=== PATIENT | female | born 1980 | race Caucasian/White ===

== ENCOUNTER → 2017-06-12 | Outpatient (CLI) | payer BC, OTHER ==
[~2017-06-12] MED LIST: ALBU4; ALBU90I INH; ALBU90OI61; AMIT10; BACL10 PO; Benadryl 50 mg50 MG PO; CEPH500 PO; CITA20 PO; CRUTCH4 USE; Crutch1 EACH MISC; DIAZ5 PO; ERGO400 PO; FENO160 PO; FISH1000 PO; FLUSAL115 PO; HYDACE5 PO; LORA1 PO; METPRE4DP PO; NAPR550 PO; Naprosyn500 MG PO; Norco 5-325 Ta1 EACH PO; PHENA200 PO; PRED20 PO; QVAR7.3 G1 IH; RXHYDACE PO; RXLORA1 PO; SERT100 PO; SERT50 PO; SULTRIDS PO; TRAZ100 PO; Ultram50 MG PO; VIT D PO; Veetids 500500 MG PO; Verotin-Gr Cap1 EACH
== END | disposition home or self-care (01) ==
LOC: LAB 15:33 → LAB SHORT 15:33
DX: O09.529 Supervision of elderly multigravida, unspecified trimester (principal)
CPT/HCPCS: 87081; 87653

== ENCOUNTER 2017-06-23 22:25 | Inpatient (IN) | payer BC, OTHER ==
[~2017-06-23] VITALS: Ht 162.6 cm; Wt 89.0 kg
[2017-06-24] MEDS ORDERED: ALBU90OI INH (00:10)
[2017-06-24 00:44] LABS: BASOPHILS ABSOLUTE AUTO 0.03 K/mm3 (0.00-0.23); BASOPHILS PERCENT AUTO 0 % (0-2); EOSINOPHILS ABSOLUTE AUTO 0.07 K/mm3 (0.00-0.68); EOSINOPHILS PERCENT AUTO 1 % (0-6); Hematocrit 34.2 % (33.0-51.0); Hemoglobin 11.4 g/dL (11.5-16.0); IMMATURE GRAN ABSOLUTE AUTO 0.04 K/mm3 (0.00-0.10); IMMATURE GRAN PERCENT AUTO 0 % (0-1); LYMPHOCYTES ABSOLUTE AUTO 3.39 K/mm3 (0.84-5.20); LYMPHOCYTES PERCENT AUTO 25 % (21-46); MONOCYTES ABSOLUTE AUTO 0.97 K/mm3 (0.16-1.47); MONOCYTES PERCENT AUTO 7 % (4-13); Mean Corpuscular HGB 28.8 pg (26.0-34.0); Mean Corpuscular HGB Conc 33.3 g/dL (31.5-36.5); Mean Corpuscular Volume 86 fL (80-100); Mean Platelet Volume 10.8 fL (9.1-12.4); NEUTROPHILS ABSOLUTE AUTO 8.94 K/mm3 (1.96-9.15); NEUTROPHILS PERCENT AUTO 67 % (41-73); Platelet Count 262 K/mm3 (150-400); RDW Coefficient Variation 13.9 % (11.7-14.2); RDW Standard Deviation 43.3 fL (35.1-46.3); Red Blood Cell Count 3.96 M/mm3 (3.80-5.20); White Blood Cell Count 13.44 K/mm3 (4.00-11.30)
== END 2017-06-24 06:43 | disposition home or self-care (01) | DRG 782 ==
LOC: OBS 22:25 → BC 22:26 → OBS 23:52 → BC 23:54 → OBS 23:54 → BC 23:55
PROVIDERS: Obstetrics & Gynecology
DX: O62.2 Other uterine inertia (principal); O99.330 Smoking (tobacco) complicating pregnancy, unspecified trimester
CPT/HCPCS: 36415; 59025; 81003; 85025; 99213; J2590; J3010; J7120

== ENCOUNTER 2017-07-05 11:30 | Inpatient (IN) | payer BC, OTHER ==
[~2017-07-05] VITALS: Ht 162.6 cm; Wt 88.5 kg
[~2017-07-05 11:30] MED LIST changes: +ALBU90OI INH
[2017-07-05 12:33] LABS: BASOPHILS ABSOLUTE AUTO 0.03 K/mm3 (0.00-0.23); BASOPHILS PERCENT AUTO 0 % (0-2); EOSINOPHILS ABSOLUTE AUTO 0.05 K/mm3 (0.00-0.68); EOSINOPHILS PERCENT AUTO 0 % (0-6); Hematocrit 36.7 % (33.0-51.0); Hemoglobin 12.2 g/dL (11.5-16.0); IMMATURE GRAN ABSOLUTE AUTO 0.05 K/mm3 (0.00-0.10); IMMATURE GRAN PERCENT AUTO 0 % (0-1); LYMPHOCYTES ABSOLUTE AUTO 2.27 K/mm3 (0.84-5.20); LYMPHOCYTES PERCENT AUTO 15 % (21-46); MONOCYTES PERCENT AUTO 6 % (4-13); Mean Corpuscular HGB 28.6 pg (26.0-34.0); Mean Corpuscular HGB Conc 33.2 g/dL (31.5-36.5); Mean Corpuscular Volume 86 fL (80-100); Mean Platelet Volume 11.6 fL (9.1-12.4); NEUTROPHILS ABSOLUTE AUTO 11.75 K/mm3 (1.96-9.15); NEUTROPHILS PERCENT AUTO 78 % (41-73); Platelet Count 262 K/mm3 (150-400); RDW Coefficient Variation 14.2 % (11.7-14.2); RDW Standard Deviation 44.4 fL (35.1-46.3); Red Blood Cell Count 4.26 M/mm3 (3.80-5.20); White Blood Cell Count 15.05 K/mm3 (4.00-11.30)
[2017-07-07 07:33] LABS: Hematocrit 32.1 % (33.0-51.0); Hemoglobin 10.5 g/dL (11.5-16.0); Mean Corpuscular HGB 28.7 pg (26.0-34.0); Mean Corpuscular HGB Conc 32.7 g/dL (31.5-36.5); Mean Corpuscular Volume 88 fL (80-100); Mean Platelet Volume 11.1 fL (9.1-12.4); Platelet Count 229 K/mm3 (150-400); RDW Coefficient Variation 14.3 % (11.7-14.2); RDW Standard Deviation 45.8 fL (35.1-46.3); Red Blood Cell Count 3.66 M/mm3 (3.80-5.20); White Blood Cell Count 11.79 K/mm3 (4.00-11.30)
[2017-07-07] MEDS ORDERED: IBUP800 PO (09:43)
== END 2017-07-07 10:00 | disposition home or self-care (01) | DRG 775 ==
LOC: OBS 11:30 → BC 11:33 → OBS 11:38 → BC 11:39
PROVIDERS: Obstetrics & Gynecology
PROC: 10E0XZZ Delivery of Products of Conception, External Approach (ICD-10-PCS; principal; 2017-07-06)
PROC: 10H07YZ Insertion of Other Device into Products of Conception, Via Natural or Artificial Opening (ICD-10-PCS; 2017-07-06)
PROC: 3E0R3BZ Introduction of Anesthetic Agent into Spinal Canal, Percutaneous Approach (ICD-10-PCS; 2017-07-06)
DX: O42.02 Full-term premature rupture of membranes, onset of labor within 24 hours of rupture (principal); O69.81X0 Labor and delivery complicated by cord around neck, without compression, not applicable or unspecified; O99.52 Diseases of the respiratory system complicating childbirth; J44.9 Chronic obstructive pulmonary disease, unspecified; Z3A.39 39 weeks gestation of pregnancy; Z37.0 Single live birth
CPT/HCPCS: 36415; 51702; 85025; 85027; J1885; J2590; J3010; J7030; J7120

== ENCOUNTER 2017-09-01 08:27 | Day surgery (SDC) | payer BC, OTHER ==
[~2017-09-01] VITALS: Ht 160 cm; Wt 78.9 kg
[~2017-09-01 08:27] MED LIST changes: +IBUP800 PO
== END 2017-09-01 12:32 | disposition home or self-care (01) ==
LOC: ORSCMMR 08:27 → ORD 10:00 → ORSCMMR 12:32
PROVIDERS: Obstetrics & Gynecology
PROC: 0UB74ZZ Excision of Bilateral Fallopian Tubes, Percutaneous Endoscopic Approach (ICD-10-PCS; principal; 2017-09-01 10:00)
DX: Z30.2 Encounter for sterilization (principal); E78.5 Hyperlipidemia, unspecified; F41.8 Other specified anxiety disorders; M79.7 Fibromyalgia; J45.909 Unspecified asthma, uncomplicated; Z79.899 Other long term (current) drug therapy; F17.210 Nicotine dependence, cigarettes, uncomplicated
CPT/HCPCS: 88302; J0171; J2250; J3010; J7120

== ENCOUNTER → 2018-09-17 | Outpatient (CLI) | payer BC ==
[2018-09-21 15:07] LABS: HPV 16 Negative (Negative); HPV 18 Negative (Negative); HPV OTHER HR TYPES Negative (Negative)
== END | disposition home or self-care (01) ==
LOC: LAB 10:34 → LAB SHORT 10:34
PROVIDERS: Obstetrics & Gynecology
DX: Z01.419 Encounter for gynecological examination (general) (routine) without abnormal findings (principal)
CPT/HCPCS: 87624; G0123

== ENCOUNTER → 2019-02-18 | Outpatient (CLI) | payer BC, OTHER | END | disposition home or self-care (01) | LOC: LAB SHORT 13:56 → PLD 13:56 | DX: N92.0 Excessive and frequent menstruation with regular cycle (principal) | CPT/HCPCS: 88305 ==

== ENCOUNTER 2019-04-12 07:36 | Day surgery (SDC) | payer BC, OTHER ==
[~2019-04-12] VITALS: Ht 226.1 cm; Wt 89.9 kg
--- NOTE | 2019-04-12 08:29 | NUR ---
Ambulatory in Day Surgery History, Chart, Medications and Allergies reviewed before start of procedure.Patient confirms NPO status and agrees with scheduled surgery. Lungs clear T/O to Auscultation. Surgical site prepped with 2% Chlorhexidine cloth wipe.
--- NOTE | 2019-04-12 11:46 | NUR ---
REPORTED OFF TO VLADIMIR OSHEA IN PACU. PT STABLE, SLEEPING COMFORTABLE. GOOD RELIEF WITH PAIN MED, FENTANYL IVP.
--- NOTE | 2019-04-12 19:10 | NUR ---
SHIFT SUMMARY PT POD 0 LAVH. STERI STRIPS X'S W/SCANT AMT DRAINAGE PRESENT-REINFORCED WITH GAUZE. MARTINEZ PATENT, DRAINING CLEAR YELLOW URINE. WILL DC IN AM PER MD ORDER. PT AMBULATING IN HALLWAY TWICE. PAIN MANAGED PER EMAR. PLAN IS TO DC TOMORROW IF NO COMPLICATIONS.
[2019-04-13 04:19] LABS: BASOPHILS ABSOLUTE AUTO 0.02 K/mm3 (0.00-0.23); BASOPHILS PERCENT AUTO 0 % (0-2); EOSINOPHILS ABSOLUTE AUTO 0.01 K/mm3 (0.00-0.68); EOSINOPHILS PERCENT AUTO 0 % (0-6); Hematocrit 37.6 % (33.0-51.0); IMMATURE GRAN ABSOLUTE AUTO 0.06 K/mm3 (0.00-0.10); IMMATURE GRAN PERCENT AUTO 0 % (0-1); LYMPHOCYTES PERCENT AUTO 16 % (21-46); MONOCYTES ABSOLUTE AUTO 0.91 K/mm3 (0.16-1.47); MONOCYTES PERCENT AUTO 6 % (4-13); Mean Corpuscular HGB 28.4 pg (26.0-34.0); Mean Corpuscular HGB Conc 31.9 g/dL (31.5-36.5); Mean Corpuscular Volume 89 fL (80-100); NEUTROPHILS ABSOLUTE AUTO 12.92 K/mm3 (1.96-9.15); NEUTROPHILS PERCENT AUTO 78 % (41-73); Platelet Count 284 K/mm3 (150-400); RDW Standard Deviation 42.9 fL (35.1-46.3); Red Blood Cell Count 4.22 M/mm3 (3.80-5.20); White Blood Cell Count 16.52 K/mm3 (4.00-11.30)
--- NOTE | 2019-04-13 07:33 | NUR ---
PT OUTSIDE WITH FAMILY TO SMOKE, AMBULATES INDEPENDENTLY
--- NOTE | 2019-04-13 07:41 | NUR ---
SHIFT SUMMARY: PT POD #1 FOR LAVH. SS CDI WITH SMALL AMOUNT OF DRY DRG TO UMBILICAL SS. SMALL AMOUNT OF VAG DRG TO MACARIO PAD. PAIN MANAGED WITH ORAL PAIN MEDS AND TORADOL PER EMAR. FLUIDS INFUSING THROUGHOUT NIGHT. MARTINEZ TAKEN OUT AT 0600 AND PT HAS ALREADY VOIDED. INDEPENDENT IN ROOM AND AMBULATING FREQUENTLY.
[2019-04-13] MEDS ORDERED: DOCU100 PO (10:08)
[2019-04-13] MEDS ORDERED: ACET325 PO (10:08)
[2019-04-13] MEDS ORDERED: IBUP800 PO (10:09)
[2019-04-13] MEDS ORDERED: Percocet 5-3251 EACH PO (10:11)
--- NOTE | 2019-04-13 11:09 | NUR ---
DISCHARGE PT GIVEN WRITTEN AND VERBAL DISCHARGE INSTRUCTIONS AND VERBALIZED UNDERSTANDING OF THESE INSTRUCTIONS. IV REMOVED, PT TOLERATED WELL. PLAN TO DC ONCE HER RIDE ARRIVES
== END 2019-04-13 11:13 | disposition home or self-care (01) ==
LOC: ORSCMMR 07:36 → ORD 09:30 → ORSCMMR 09:30 → SURS 12:12 → ORSCMMR 04-13 11:13 → SURS 04-13 11:13
PROVIDERS: Obstetrics & Gynecology
PROC: 0UT9FZZ Resection of Uterus, Via Natural or Artificial Opening With Percutaneous Endoscopic Assistance (ICD-10-PCS; principal; 2019-04-12 09:30)
DX: N92.0 Excessive and frequent menstruation with regular cycle (principal); D25.9 Leiomyoma of uterus, unspecified; J44.9 Chronic obstructive pulmonary disease, unspecified; F17.210 Nicotine dependence, cigarettes, uncomplicated; K21.9 Gastro-esophageal reflux disease without esophagitis; Z79.899 Other long term (current) drug therapy; E66.01 Morbid (severe) obesity due to excess calories; Z68.35 Body mass index [BMI] 35.0-35.9, adult
CPT/HCPCS: 36415; 85025; 88307; A9270; J0690; J1100; J1170; J1885; J2250; J2405; J2704; J2710; J3010; J7120

== ENCOUNTER 2023-04-14 11:44 | Emergency (ER) | payer BC ==
[~2023-04-14] VITALS: Ht 162.6 cm; Wt 90.7 kg
[~2023-04-14 11:44] MED LIST changes: +ACET325 PO; +DOCU100 PO; +Percocet 5-3251 EACH PO
[2023-04-14 12:48] LABS: Influenza A, PCR NEGATIVE (NEGATIVE); Influenza B, PCR NEGATIVE (NEGATIVE); Resp Syncytial Virus, PCR NEGATIVE (NEGATIVE); SARS-Cov-2 (COVID-19) PCR, MMC NEGATIVE (NEGATIVE)
[2023-04-14] MEDS ORDERED: ALBU2.5V5 (13:13)
[2023-04-14] MEDS ORDERED: PredniSONE 20 MG Tab PO ONE (13:20)
[2023-04-14] MEDS ORDERED: Ipratropium/Albuterol SulF 2.5-0.5MG/3 ML Amp INH ONE (13:20)
[2023-04-14 14:23] VITALS: BP 148/67
[2023-04-14] MEDS ORDERED: Zithromax250 MG PO (14:33)
[2023-04-14] MEDS ORDERED: Prednisone20 MG PO (14:33)
== END 2023-04-14 14:43 | disposition home or self-care (01) ==
LOC: ER 11:44
PROVIDERS: Physician Assistant
DX: J18.9 Pneumonia, unspecified organism (principal); J45.909 Unspecified asthma, uncomplicated; F17.210 Nicotine dependence, cigarettes, uncomplicated; Z79.899 Other long term (current) drug therapy
CPT/HCPCS: 0241U; 71046; 94640; 94664; 99285-25; J7512

== ENCOUNTER → 2025-02-07 | Outpatient (CLI) | payer BC ==
[~2025-02-07] MED LIST changes: +ALBU2.5V5; +Prednisone20 MG PO; +Zithromax250 MG PO
[2025-02-07 14:38] LABS: BASOPHILS ABSOLUTE AUTO 0.05 K/mm3 (0.00-0.23); BASOPHILS PERCENT AUTO 0 % (0-2); EOSINOPHILS ABSOLUTE AUTO 0.17 K/mm3 (0.00-0.68); EOSINOPHILS PERCENT AUTO 2 % (0-6); Hematocrit 45.0 % (33.0-51.0); Hemoglobin 14.8 g/dL (11.5-16.0); IMMATURE GRAN ABSOLUTE AUTO 0.05 K/mm3 (0.00-0.10); IMMATURE GRAN PERCENT AUTO 0 % (0-1); LYMPHOCYTES ABSOLUTE AUTO 3.46 K/mm3 (0.84-5.20); LYMPHOCYTES PERCENT AUTO 30 % (21-46); MONOCYTES ABSOLUTE AUTO 0.86 K/mm3 (0.16-1.47); MONOCYTES PERCENT AUTO 8 % (4-13); Mean Corpuscular HGB Conc 32.9 g/dL (31.5-36.5); Mean Corpuscular Volume 88 fL (80-100); NEUTROPHILS ABSOLUTE AUTO 6.86 K/mm3 (1.96-9.15); NEUTROPHILS PERCENT AUTO 60 % (41-73); NRBC ABSOLUTE 0.00 K/mm3 (0.00-0.02); NRBC Auto 0.0 /100 WBC (0.0-0.2); Platelet Count 335 K/mm3 (150-400); RDW Coefficient Variation 13.2 % (11.7-14.2); RDW Standard Deviation 42.9 fL (35.1-46.3)
[2025-02-07 15:12] LABS: C-REACTIVE PROTEIN, EXT RANGE 0.557 mg/dL (0.000-0.300)
[2025-02-07 15:21] LABS: Alanine Aminotransfer (ALT/SGP 39 U/L (12-78); Albumin, Blood 4.0 g/dL (3.4-5.0); Albumin/Globulin Ratio 1.0 (0.8-1.8); Anion Gap 9 mmol/L (3-11); Aspartate Aminotrans (AST/SGOT 18 U/L (12-37); Bilirubin, Total 0.3 mg/dL (0.1-1.0); Blood Urea Nitrogen 10 mg/dL (8-24); CHOL/HDL RATIO 7.6; CO2, Blood 24 mmol/L (21-32); Calcium, Blood 9.4 mg/dL (8.5-10.1); Chloride, Blood 105 mmol/L (98-108); Cholesterol 265 mg/dL (50-200); Creatinine, Blood 0.74 mg/dL (0.40-1.00); Globulin, Blood 3.9 g/dL (2.2-4.0); Glucose, Blood 105 mg/dL (70-99); HDL Cholesterol 35 mg/dL (>39); LDL/HDL RATIO Unable to Calculate; Low Density Lipoprotein Chol Unable to Calculate mg/dL (0-110); Potassium, Blood 4.0 mmol/L (3.5-5.5); Sodium, Blood 134 mmol/L (136-145); Thyroid Stimulating Hormone 1.920 uIU/mL (0.360-4.800); Total Protein, Blood 7.9 g/dL (6.4-8.2); Triglycerides 533 mg/dL (30-160); Very Low Density Lipoprot Chol Unable to Calculate mg/dL (6-32)
[2025-02-09 06:03] LABS: ANTI-NUCLEAR AB ANA,IGG ELISA None Detected (None Detected)
== END ==
LOC: LAB SHORT 08:40 → LAB 08:40
PROVIDERS: Student in an Organized Health Care Education/Training Program
DX: Z00.00 Encounter for general adult medical examination without abnormal findings (principal); M79.671 Pain in right foot; M79.672 Pain in left foot; M79.7 Fibromyalgia
CPT/HCPCS: 80053; 80061; 83036; 84443; 85025; 86038; 86140